=== PATIENT | male | born 1940 | race Caucasian/White ===

== ENCOUNTER 2017-02-02 11:17 | Emergency (ER) | payer OTHER ==
--- NOTE | ~2017-02-02 | CR151 ---
[facility] A Service of [facility] & [facility] RADIOLOGY TEXT RESULTS PATIENT: NIALL POZO JR LOCATION: [facility] : 40 UNIT #: [id number] AGE: [address]: Gloria Obrien SEX: M ORDER DR: [id number] [facility] [address] [place], [place] [address] [id number] E MR#: [id number] Acc #: [id number] NAME: NIALL POZO JR : 1940 SEX: M STUDY DATE/TIME: 02/02/2017 10:51 UNIT: [facility] ROOM: STUDY DESCRIPTION: CR Hip Min 2 Views Rt Attending Physician: Gloria Obrien P.A.-C. Ordering Physician: Gloria Obrien P.A.-C. Primary Care Physician: Eleazar Bennett M.D. MEDICAL IMAGING REPORT This report is preliminary unless electronic signature is present EXAM Right hip 2 views. HISTORY Right hip pain for 4 days after falling. No comparison. FINDINGS Mild joint space narrowing both hips. No fracture or dislocation. IMPRESSION No fracture or dislocation. Dictated by... Yandel Schultz M.D. THIS IS AN ELECTRONICALLY VERIFIED REPORT Yandel Schultz M.D. at 02/02/2017 4:41 PM MARY/tesha TD: 02/02/2017 13:32 JOB #: [id number] MEDICAL IMAGING REPORT Page 1 of 1 COPY
--- NOTE | ~2017-02-02 | CR181 ---
[facility] A Service of [facility] & [facility] RADIOLOGY TEXT RESULTS PATIENT: NIALL POZO JR LOCATION: [facility] : 40 UNIT #: [id number] AGE: [address]: Gloria Obrien SEX: M ORDER DR: [id number] [facility] [address] [place], [place] [address] [id number] E MR#: [id number] Acc #: [id number] NAME: NIALL POZO JR : 1940 SEX: M STUDY DATE/TIME: 02/02/2017 10:50 UNIT: [facility] ROOM: STUDY DESCRIPTION: CR Lumbar Spine 2 or 3 Views Attending Physician: Gloria Obrien P.A.-C. Ordering Physician: Gloria Obrien P.A.-C. Primary Care Physician: Eleazar Bennett M.D. MEDICAL IMAGING REPORT This report is preliminary unless electronic signature is present EXAM Lumbar spine 3 views INDICATIONS Low back pain and right hip pain for 4 days COMPARISON 11/21/2014 FINDINGS Stable anterolisthesis of L5 on S1. Vertebral body heights are maintained. Multilevel degenerative disc space narrowing. Lower lumbar spine facet arthropathy. IMPRESSION No acute findings. No significant change. Dictated by... Yandel Schultz M.D. THIS IS AN ELECTRONICALLY VERIFIED REPORT Yandel Schultz M.D. at 02/02/2017 4:41 PM ARS/to TD: 02/02/2017 13:32 JOB #: [id number] MEDICAL IMAGING REPORT Page 1 of 1 COPY
[~2017-02-02 11:17] MED LIST: ASPIRIN81 M2 PO; CIPRO PO; FISH OIL 1,4001 EACH PO; FLOMAX0.4 M1 PO; FLOMAX0.4 MG PO; IBUPROFEN PO; LIPITOR40 MG PO; METOPROLOL SUCC25 MG PO; NORCO 5/325 TAB1 TAB PO; OSTEO BI-FLEX1 EAC2 PO; PROTONIX PO; TOPROL XL PO; VITAMIN B-6200 M1 PO; ZOFRAN ODT4 MG PO
== END 2017-02-02 11:50 | disposition home or self-care (01) ==
LOC: CFTX 11:17
DX: M54.16 Radiculopathy, lumbar region (principal); Z87.891 Personal history of nicotine dependence; E78.5 Hyperlipidemia, unspecified; I10 Essential (primary) hypertension
CPT/HCPCS: 72100; 73502; 99283; 99284

== ENCOUNTER → 2017-02-12 | Outpatient (CLI) | payer OTHER ==
--- NOTE | ~2017-02-12 | MR113 ---
[facility] A Service of [facility] & [facility] RADIOLOGY TEXT RESULTS PATIENT: NIALL POZO JR LOCATION: [facility] : 40 UNIT #: [id number] AGE: [address]: Eleazar Bennett MD SEX: M ORDER DR: [id number] [facility] [address] [place], [place] [address] [id number] O MR#: [id number] Acc #: [id number] NAME: NIALL POZO JR : 1940 SEX: M STUDY DATE/TIME: 02/12/2017 16:48 UNIT: [facility] ROOM: STUDY DESCRIPTION: MR Lumbar Wo Contrast Attending Physician: Eleazar Bennett M.D. Referring Physician: Eleazar Bennett M.D. Ordering Physician: Eleazar Bennett M.D. Primary Care Physician: Eleazar Bennett M.D. MRI CENTER REPORT This report is preliminary unless electronic signature is present. EXAM MRI of the lumbar spine without contrast dated 02/12/2017 HISTORY Patient fell off a low stool about a month ago onto wooden floor. Patient woke up 4 days later with right-sided sciatica and right leg pain that is constant now. FINDINGS Multisequence, multiplanar imaging of the lumbar spine was obtained without contrast. Vertebral body heights are preserved. There is a 7.5 mm retrolisthesis of S1 with respect to L5. Degenerative disc disease is at multiple levels including the lower thoracic spine. Conus terminates at T12-L1. Signal of conus and cauda equina are grossly unremarkable. There is mild prominence of posterior epidural fat in the lumbar spine suggestive of epidural lipomatosis. There are scattered fatty changes in the marrow at multiple levels of the visualized lumbosacral spine. Some of it could be related to fatty marrow conversion while some could be related to fatty mass lesion like hemangioma, particularly at the right paramidline aspect of L1 measuring about 1.1 cm. Retroperitoneum, pre- and paravertebral soft tissues do not demonstrate any significant abnormality. Degenerative changes are in the lower thoracic spine particularly at T11-12 with suspicious small central protrusion and borderline size canal. L1-2: Disc osteophyte complex is asymmetrically prominent in bilateral foraminal to extraforaminal regions. Small central protrusion is seen. Mild bilateral facet changes are noted with borderline size to mild canal stenosis and mild inferior bilateral neural foraminal narrowing. L2-3: Concentric disc bulge is seen with superimposed bilateral foraminal to extraforaminal broad-based protrusion with a suspicious extruded STS. [facility] A Service of [facility] RADIOLOGY TEXT RESULTS PATIENT: NIALL POZO JR LOCATION: [facility] : 40 UNIT #: [id number] AGE: [address]: Eleazar Bennett MD SEX: M ORDER DR: component in the right foraminal region. Mild bilateral facet changes are noted with borderline size to mild canal stenosis. Mild inferior left and mild to moderate right neural foraminal narrowing are noted. L3-4: Moderate disc osteophyte complex is seen which is asymmetrically prominent in the right foraminal to extraforaminal region suggestive of superimposed broad-based protrusion. Rmwyvmmx-yy-ppjmyl right and mild left neural foraminal narrowing is seen. Nvceydso-xu-wxuncr bilateral facet hypertrophic changes are noted with moderate bilateral neural foraminal narrowing. Borderline size to mild canal stenosis is seen. L4-5: Disc osteophyte complex with ehkd-op-srzmjcag bilateral facet changes, borderline size to mild transverse canal stenosis and abgu-ar-disnrboh bilateral neural foraminal narrowing are seen. L5-S1: Disc osteophyte complex with dedi-xi-rsymtaas bilateral facet changes. Bilateral pars defects are noted with severe bilateral neural foraminal narrowing. Hypertrophic bony changes are noted adjacent to the pars defects with some inflammatory soft tissue. No significant acute inflammation or edema is seen in this region. The canal appears to be narrowed at this level which is usually related to degenerative change rather than pars defects. Canal stenosis is predominantly transverse. It is likely related to bony hypertrophic changes causing narrowing of the canal in the transverse dimension. IMPRESSION 1. There is a 7.5 mm retrolisthesis of S1 with respect to L5 suggestive of spondylolisthesis. There appear to be bilateral pars defects of L5 without any significant edematous bony change. There is some associated bony hypertrophic change related to the pars defect on the adjacent facet joint which does cause narrowing of the canal in the transverse dimension. Severe bilateral neural foraminal narrowing is also seen. 2. Degenerative changes are noted at multiple other levels of the lumbar spine as described above with varying degrees of neural foraminal narrowing. 3. There is mild prominence of posterior epidural fat in the lumbar spine suggestive of epidural lipomatosis. STAT * RESULT Dictated by... Thelma Stephenson M.D. THIS IS AN ELECTRONICALLY VERIFIED REPORT Thelma Stephenson M.D. at 02/26/2017 3:27 PM [facility] A Service of [facility] & [facility] RADIOLOGY TEXT RESULTS PATIENT: NIALL POZO JR LOCATION: [facility] : 40 UNIT #: [id number] AGE: [address]: Eleazar Bennett MD SEX: M ORDER DR: ZENIA/kandy TD: 02/25/2017 09:02 JOB #: [id number] MRI CENTER REPORT Page 1 of 1 COPY
== END | disposition home or self-care (01) ==
LOC: CMRI 16:09
DX: M51.16 Intervertebral disc disorders with radiculopathy, lumbar region (principal)
CPT/HCPCS: 72148